=== PATIENT | female | born 1990 | race Caucasian/White ===

== ENCOUNTER 2016-09-28 23:35 | Outpatient (CLI) | payer BC ==
[2016-11-03] MEDS ORDERED: PRENATAL VIT1 TAB PO (18:55)
[2016-11-03] MEDS ORDERED: COLACE-DPS100 MG PO (18:56)
[2016-11-03] MEDS ORDERED: MOTRIN-DPS800 MG PO (18:56)
[2016-11-03] MEDS ORDERED: NIPPLECREAM TP (18:56)
== END 2016-09-29 01:00 | disposition home or self-care (01) ==
LOC: BC 23:35 → 2LDRP 23:35 → BC 09-29 01:00
DX: O47.03 False labor before 37 completed weeks of gestation, third trimester (principal); Z3A.34 34 weeks gestation of pregnancy